=== PATIENT | male | born 1960 | race Caucasian/White ===

== ENCOUNTER 2019-02-19 14:51 | Emergency (ER) | payer MEDICAID ==
[~2019-02-19] VITALS: Ht 167.6 cm; Wt 68.0 kg
[2019-02-19] MEDS ORDERED: ONDANSETRON HCL 4MG/2ML INJ IV ONE (15:45)
[2019-02-19] MEDS ORDERED: FOLIC ACID 1 MG, THIAMINE HCL 100 MG, MVI, ADULT NO.1 10 ML in DEXTROSE 5% WATER 1,000 ML IV ONE ×4 (15:45)
[2019-02-19] MEDS ORDERED: LORAZEPAM 2MG/ML CPJ IV ONE (16:00)
[2019-02-19 16:17] LABS: BASOPHILS % 0.7 % (0.0-2.0); EOSINOPHILS % 0.3 % (0.0-5.0); HEMATOCRIT. 45.2 % (42.0-52.0); HEMOGLOBIN. 15.3 g/dL (14.0-18.0); LYMPHOCYTES % 11.8 % (20.0-50.0); MEAN CORPUSCULAR HEMOGLOBIN 31.7 pg (28.0-32.0); MEAN CORPUSCULAR VOLUME 93.7 fL (80.0-94.0); MEAN PLATELET VOLUME 7.5 fl (7.4-10.4); MONOCYTES % 9.5 % (2.0-8.0); NEUTROPHILS % 77.7 % (40.0-76.0); PLATELET 202 x1000/uL (130-400); RED BLOOD CELL COUNT 4.83 mill/uL (4.7-6.1); RED CELL DISTRIBUTION WIDTH 14.2 % (11.6-14.6)
[2019-02-19 16:23] LABS: CHLORIDE 103 mEq/L (98-107)
[2019-02-19 16:27] LABS: ETHANOL BLOOD < 10 mg/dL
[2019-02-19 16:56] LABS: CLARITY URINE CLEAR (CLEAR); COLOR URINE DARK YELLOW (YELLOW); KETONES URINE 2+ (NEGATIVE); LEUKOCYTE ESTERASE URINE TRACE (NEGATIVE); NITRITE URINE NEGATIVE (NEGATIVE); OCCULT BLOOD URINE TRACE (NEGATIVE); PH URINE 7.5 (4.5-8.0); PROTEIN URINE 1+ (NEGATIVE); SPECIFIC GRAVITY URINE 1.026 (1.005-1.030)
[2019-02-19 17:04] LABS: *AMPHETAMINES SCREEN URINE NEGATIVE (NEGATIVE); *BARBITURATES SCREEN URINE NEGATIVE (NEGATIVE); *BENZODIAZEPINES SCREEN URINE NEGATIVE (NEGATIVE); *COCAINE SCREEN URINE NEGATIVE (NEGATIVE); METHADONE URINE SCREEN NEGATIVE (NEGATIVE); OPIATES URINE SCREEN NEGATIVE (NEGATIVE)
[2019-02-19 17:05] LABS: CANNABINOID URINE SCREEN NEGATIVE (NEGATIVE); PHENCYCLIDINE URINE SCREEN NEGATIVE (NEGATIVE)
[2019-02-19] MEDS ORDERED: CHLORDIAZEPOXIDE 25MG CAPSULE PO ONE (17:30)
[2019-02-19 18:35] VITALS: BP 139/76
== END 2019-02-19 18:46 | disposition home or self-care (01) ==
LOC: ER 14:51
DX: F10.239 Alcohol dependence with withdrawal, unspecified (principal); Y90.0 Blood alcohol level of less than 20 mg/100 ml
CPT/HCPCS: 36415; 70450; 71045; 80053; 80305; 80307; 80320; 80329; 81003; 83735; 84484; 85025; 93005; 96365; 96375; 99284; J2060; J2405; J3411; J3490; J7070; G0480

== ENCOUNTER 2020-03-08 09:45 | Emergency (ER) | payer MEDICAID ==
[~2020-03-08] VITALS: Ht 160 cm; Wt 74.0 kg
[2020-03-08] MEDS ORDERED: SODIUM CHLORIDE 0.9% 1,000 ML IV ONE (11:22)
[2020-03-08] MEDS ORDERED: KETOROLAC 30MG/ML VIAL IV STA (11:22)
[2020-03-08 11:53] LABS: BASOPHILS % 1.1 % (0.0-2.0); EOSINOPHILS % 1.1 % (0.0-5.0); HEMATOCRIT. 40.1 % (42.0-52.0); HEMOGLOBIN. 13.8 g/dL (14.0-18.0); LYMPHOCYTES % 19.4 % (20.0-50.0); MEAN CORPUSCULAR HEMOGLOBIN 33.2 pg (28.0-32.0); MEAN CORPUSCULAR VOLUME 96.6 fL (80.0-94.0); MEAN PLATELET VOLUME 6.7 fl (7.4-10.4); MONOCYTES % 9.8 % (2.0-8.0); NEUTROPHILS % 68.6 % (40.0-76.0); PLATELET 131 x1000/uL (130-400); RED BLOOD CELL COUNT 4.15 mill/uL (4.7-6.1); RED CELL DISTRIBUTION WIDTH 13.6 % (11.6-14.6)
[2020-03-08 11:59] LABS: CHLORIDE 96 mEq/L (98-107)
[2020-03-08 12:03] LABS: ETHANOL BLOOD 179 mg/dL
[2020-03-08 12:31] LABS: CLARITY URINE CLEAR (CLEAR); COLOR URINE YELLOW (YELLOW); KETONES URINE NEGATIVE (NEGATIVE); LEUKOCYTE ESTERASE URINE NEGATIVE (NEGATIVE); NITRITE URINE NEGATIVE (NEGATIVE); OCCULT BLOOD URINE TRACE (NEGATIVE); PROTEIN URINE NEGATIVE (NEGATIVE)
[2020-03-08 12:46] VITALS: BP 137/86
[2020-03-08 12:48] LABS: *AMPHETAMINES SCREEN URINE NEGATIVE (NEGATIVE); *BARBITURATES SCREEN URINE NEGATIVE (NEGATIVE); *BENZODIAZEPINES SCREEN URINE NEGATIVE (NEGATIVE); *COCAINE SCREEN URINE NEGATIVE (NEGATIVE); METHADONE URINE SCREEN NEGATIVE (NEGATIVE); OPIATES URINE SCREEN NEGATIVE (NEGATIVE)
[2020-03-08 12:49] LABS: CANNABINOID URINE SCREEN NEGATIVE (NEGATIVE); PHENCYCLIDINE URINE SCREEN NEGATIVE (NEGATIVE)
== END 2020-03-08 14:11 | disposition home or self-care (01) ==
LOC: ER 09:45
DX: R10.13 Epigastric pain (principal); F10.129 Alcohol abuse with intoxication, unspecified; Y90.6 Blood alcohol level of 120-199 mg/100 ml; R20.0 Anesthesia of skin; D64.9 Anemia, unspecified; D72.819 Decreased white blood cell count, unspecified; Z87.891 Personal history of nicotine dependence
CPT/HCPCS: 36415; 71045; 74176; 80053; 80305; 80320; 81003; 83690; 85025; 93005; 96361; 96374; 99285; J1885; J7030; G0480

== ENCOUNTER 2020-06-10 00:20 | Inpatient (IN) | payer MEDICAID ==
[~2020-06-10] VITALS: Ht 167.6 cm; Wt 55.3 kg
[2020-06-10 01:01] LABS: HEMATOCRIT. 37.6 % (42.0-52.0); HEMOGLOBIN. 13.1 g/dL (14.0-18.0); MEAN CORPUSCULAR HEMOGLOBIN 32.5 pg (28.0-32.0); MEAN CORPUSCULAR VOLUME 93.4 fL (80.0-94.0); MEAN PLATELET VOLUME 7.4 fl (7.4-10.4); PLATELET 142 x1000/uL (130-400); RED BLOOD CELL COUNT 4.02 mill/uL (4.7-6.1); RED CELL DISTRIBUTION WIDTH 12.5 % (11.6-14.6)
[2020-06-10 01:07] LABS: PLATELET ESTIMATE NORMAL
[2020-06-10 01:09] LABS: CHLORIDE 85 mEq/L (98-107)
[2020-06-10 01:13] LABS: ETHANOL BLOOD < 10 mg/dL
[2020-06-10] MEDS ORDERED: SODIUM CHLORIDE 0.9% 1,000 ML IV ONE (01:30)
[2020-06-10] MEDS ORDERED: KCL 20MEQ/100ML PREMIX 100 ML IV ONE (02:30)
[2020-06-10] MEDS ORDERED: MAGNESIUM/ALUMINUM HYDROXIDE/SIMETHICONE 30ML UDC PO PRN (07:00)
[2020-06-10] MEDS ORDERED: NITROGLYCERIN 0.4MG TABLET SL SL PRN (07:00)
[2020-06-10] MEDS ORDERED: DOCUSATE SODIUM 100MG CAPSULE PO PRN (07:00)
[2020-06-10] MEDS ORDERED: KETOROLAC 15MG/ML VIAL IV PRN (07:00)
[2020-06-10] MEDS ORDERED: ACETAMINOPHEN 325MG TABLET PO PRN ×2 (07:00)
[2020-06-10] MEDS ORDERED: ONDANSETRON HCL 4MG/2ML INJ IV PRN (07:00)
[2020-06-10] MEDS ORDERED: CLONIDINE 0.1MG TABLET PO PRN (07:00)
[2020-06-10] MEDS ORDERED: POTASSIUM CHLORIDE 20MEQ TABLET SR PO SCH (08:00)
[2020-06-10] MEDS ORDERED: KCL 20MEQ/100ML PREMIX 100 ML IV SCH (08:00)
[2020-06-10] MEDS ORDERED: MVI, ADULT NO.1 10 ML, FOLIC ACID 1 MG, THIAMINE HCL 100 MG in SODIUM CHLORIDE 0.9% 1,0... IV SCH ×4 (08:00)
[2020-06-10 08:12] LABS: FOLIC ACID (FOLATE) SERUM 12.8 ng/mL (>5.38)
[2020-06-10 12:02] LABS: *AMPHETAMINES SCREEN URINE NEGATIVE (NEGATIVE); *BARBITURATES SCREEN URINE NEGATIVE (NEGATIVE); *BENZODIAZEPINES SCREEN URINE NEGATIVE (NEGATIVE); *COCAINE SCREEN URINE NEGATIVE (NEGATIVE); METHADONE URINE SCREEN NEGATIVE (NEGATIVE); OPIATES URINE SCREEN NEGATIVE (NEGATIVE); PHENCYCLIDINE URINE SCREEN NEGATIVE (NEGATIVE)
[2020-06-10 12:03] LABS: CANNABINOID URINE SCREEN NEGATIVE (NEGATIVE)
[2020-06-10] MEDS: ENOXAPARIN 40MG/0.4ML SYR SUBCUT SCH (12:33)
[2020-06-10] MEDS: FAMOTIDINE 20MG TABLET PO SCH ×2 (12:33→22:39)
[2020-06-10] MEDS ORDERED: ZOLPIDEM TARTRATE 5MG TABLET PO PRN (18:00)
[2020-06-10 20:00] VITALS: BP 99/56
[2020-06-10] MEDS: SODIUM CHLORIDE 0.9% 1,000 ML IV SCH ×2 (20:04→23:19)
[2020-06-10 21:25] VITALS: BP 128/75
[2020-06-11] VITALS: BP 130/79
[2020-06-11 04:00] VITALS: BP 131/84
[2020-06-11 06:37] LABS: CHLORIDE 102 mEq/L (98-107)
[2020-06-11 06:42] LABS: AMYLASE 113 IU/L (25-115)
[2020-06-11 07:06] LABS: PHOSPHORUS 0.8 mg/dL (2.5-4.9)
[2020-06-11 07:38] LABS: BASOPHILS % 0.5 % (0.0-2.0); EOSINOPHILS % 1.1 % (0.0-5.0); HEMATOCRIT. 33.4 % (42.0-52.0); HEMOGLOBIN. 11.4 g/dL (14.0-18.0); LYMPHOCYTES % 13.4 % (20.0-50.0); MEAN CORPUSCULAR HEMOGLOBIN 32.5 pg (28.0-32.0); MEAN CORPUSCULAR VOLUME 95.2 fL (80.0-94.0); MEAN PLATELET VOLUME 7.4 fl (7.4-10.4); MONOCYTES % 13.7 % (2.0-8.0); NEUTROPHILS % 71.3 % (40.0-76.0); PLATELET 134 x1000/uL (130-400); RED BLOOD CELL COUNT 3.51 mill/uL (4.7-6.1); RED CELL DISTRIBUTION WIDTH 12.3 % (11.6-14.6)
[2020-06-11 08:00] VITALS: BP 140/88
[2020-06-11] MEDS: ENOXAPARIN 40MG/0.4ML SYR SUBCUT SCH (08:44)
[2020-06-11] MEDS: FAMOTIDINE 20MG TABLET PO SCH ×2 (08:44→21:45)
[2020-06-11] MEDS ORDERED: POTASSIUM CHLORIDE 20MEQ/PACKET PO NR (09:00)
[2020-06-11] MEDS ORDERED: POTASSIUM PHOS,M-BASIC-D-BASIC 30 MMOL in DEXT 5% WATER 500 ML IV NR (10:30)
[2020-06-11 12:00] VITALS: BP 146/92
[2020-06-11] MEDS: CHLORDIAZEPOXIDE 25MG CAPSULE PO SCH ×2 (15:01→21:45)
[2020-06-11 16:00] VITALS: BP 123/83
[2020-06-11 20:00] VITALS: BP 120/83
[2020-06-11] MEDS: SODIUM CHLORIDE 0.9% 1,000 ML IV SCH (23:07)
[2020-06-12] VITALS: BP 108/71
[2020-06-12 04:00] VITALS: BP 120/70
[2020-06-12] MEDS: CHLORDIAZEPOXIDE 25MG CAPSULE PO SCH (05:54)
[2020-06-12 08:00] VITALS: BP 108/72
[2020-06-12 08:29] LABS: CHLORIDE 100 mEq/L (98-107)
[2020-06-12 08:34] LABS: PHOSPHORUS 3.1 mg/dL (2.5-4.9)
[2020-06-12 08:35] LABS: AMYLASE 115 IU/L (25-115)
[2020-06-12] MEDS: FAMOTIDINE 20MG TABLET PO SCH ×2 (08:58→21:37)
[2020-06-12] MEDS: ENOXAPARIN 40MG/0.4ML SYR SUBCUT SCH (08:58)
[2020-06-12] MEDS: SODIUM CHLORIDE 0.9% 1,000 ML IV SCH ×2 (08:58→15:55)
[2020-06-12] MEDS ORDERED: POTASSIUM CHLORIDE INJ 40 MEQ in DEXT 5% WATER 500 ML IV NR (11:00)
[2020-06-12] MEDS ORDERED: POTASSIUM CHLORIDE 20MEQ/PACKET PO NR (11:00)
[2020-06-12 12:00] VITALS: BP 106/70
[2020-06-12 12:59] LABS: MEAN CORPUSCULAR HEMOGLOBIN 32.5 pg (28.0-32.0); PLATELET 208 x1000/uL (130-400); RED BLOOD CELL COUNT 3.68 mill/uL (4.7-6.1); RED CELL DISTRIBUTION WIDTH 12.7 % (11.6-14.6)
[2020-06-12] MEDS: CHLORDIAZEPOXIDE 10MG CAPSULE PO SCH ×2 (14:01→21:37)
[2020-06-12 16:00] VITALS: BP 111/51
[2020-06-12 17:11] LABS: PLATELET ESTIMATE NORMAL
[2020-06-12 20:00] VITALS: BP 100/60
[2020-06-13] VITALS: BP 102/69
[2020-06-13] MEDS: SODIUM CHLORIDE 0.9% 1,000 ML IV SCH ×2 (00:31→08:58)
[2020-06-13 04:00] VITALS: BP 100/68
[2020-06-13] MEDS: CHLORDIAZEPOXIDE 10MG CAPSULE PO SCH (06:02)
[2020-06-13 07:52] LABS: HEMATOCRIT. 34.3 % (42.0-52.0); HEMOGLOBIN. 11.7 g/dL (14.0-18.0); MEAN CORPUSCULAR HEMOGLOBIN 32.5 pg (28.0-32.0); MEAN PLATELET VOLUME 6.6 fl (7.4-10.4); PLATELET 234 x1000/uL (130-400); RED BLOOD CELL COUNT 3.61 mill/uL (4.7-6.1); RED CELL DISTRIBUTION WIDTH 12.6 % (11.6-14.6)
[2020-06-13 08:00] VITALS: BP 110/69
[2020-06-13 08:19] LABS: CHLORIDE 106 mEq/L (98-107)
[2020-06-13 08:29] LABS: PHOSPHORUS 2.7 mg/dL (2.5-4.9)
[2020-06-13] MEDS: FAMOTIDINE 20MG TABLET PO SCH ×2 (08:56→22:43)
[2020-06-13] MEDS: ENOXAPARIN 40MG/0.4ML SYR SUBCUT SCH (08:57)
[2020-06-13] MEDS ORDERED: POTASSIUM CHLORIDE 20MEQ/PACKET PO NR (09:45)
[2020-06-13] MEDS ORDERED: POTASSIUM CHLORIDE INJ 40 MEQ in DEXT 5% WATER 500 ML IV NR (11:00)
[2020-06-13 12:00] VITALS: BP 101/70
[2020-06-13 15:01] LABS: PLATELET ESTIMATE NORMAL
[2020-06-13 16:00] VITALS: BP 94/63
[2020-06-13 20:00] VITALS: BP 94/63
[2020-06-14] VITALS: BP 110/72
[2020-06-14 04:00] VITALS: BP 96/59
[2020-06-14 07:32] LABS: CHLORIDE 107 mEq/L (98-107)
[2020-06-14 07:50] LABS: PHOSPHORUS 1.6 mg/dL (2.5-4.9)
[2020-06-14 08:00] VITALS: BP 106/65
[2020-06-14] MEDS: SODIUM CHLORIDE 0.9% 1,000 ML IV SCH ×3 (08:00→16:00)
[2020-06-14 09:07] LABS: HEMATOCRIT. 34.5 % (42.0-52.0); HEMOGLOBIN. 11.7 g/dL (14.0-18.0); MEAN CORPUSCULAR HEMOGLOBIN 32.5 pg (28.0-32.0); MEAN CORPUSCULAR VOLUME 95.7 fL (80.0-94.0); MEAN PLATELET VOLUME 6.6 fl (7.4-10.4); PLATELET 254 x1000/uL (130-400); RED CELL DISTRIBUTION WIDTH 12.9 % (11.6-14.6)
[2020-06-14] MEDS: FAMOTIDINE 20MG TABLET PO SCH ×2 (09:53→21:31)
[2020-06-14] MEDS: ENOXAPARIN 40MG/0.4ML SYR SUBCUT SCH (09:54)
[2020-06-14] MEDS ORDERED: POTASSIUM CHLORIDE 20MEQ/PACKET PO SCH (10:00)
[2020-06-14] MEDS ORDERED: SODIUM CHLORIDE 0.9% IV SCH (11:00)
[2020-06-14] MEDS ORDERED: POTASSIUM PHOS M BASIC D BASIC IV SCH (11:00)
[2020-06-14] MEDS ORDERED: POTASSIUM PHOS,M-BASIC-D-BASIC 20 MMOL in DEXT 5% WATER 243.3333 ML IV SCH (11:00)
[2020-06-14 12:00] VITALS: BP 100/59
[2020-06-14 16:00] VITALS: BP 99/73
[2020-06-14 18:25] LABS: PLATELET ESTIMATE NORMAL
[2020-06-14 20:00] VITALS: BP 99/64
[2020-06-15] VITALS: BP 101/67
[2020-06-15] MEDS: SODIUM CHLORIDE 0.9% 1,000 ML IV SCH (00:45)
[2020-06-15 04:00] VITALS: BP 100/65
[2020-06-15] MEDS: FAMOTIDINE 20MG TABLET PO SCH (09:00)
[2020-06-15] MEDS: ENOXAPARIN 40MG/0.4ML SYR SUBCUT SCH (10:14)
== END 2020-06-15 11:45 | disposition home or self-care (01) | DRG 282 ==
LOC: ER 00:20 → 6EST 05:08 → ENRESERV 19:43 → CANRESERV 19:43 → EDBEDREQSVC 20:21 → ENRESERV 20:39
PROVIDERS: ADMIT Internal Medicine; ATTEND Internal Medicine
DX: K85.20 Alcohol induced acute pancreatitis without necrosis or infection (principal); D63.8 Anemia in other chronic diseases classified elsewhere; E87.1 Hypo-osmolality and hyponatremia; E87.6 Hypokalemia; K74.60 Unspecified cirrhosis of liver; R74.01 Elevation of levels of liver transaminase levels; F10.239 Alcohol dependence with withdrawal, unspecified; Z71.41 Alcohol abuse counseling and surveillance of alcoholic; Z20.822 Contact with and (suspected) exposure to COVID-19; E43 Unspecified severe protein-calorie malnutrition; Z68.1 Body mass index [BMI] 19.9 or less, adult
CPT/HCPCS: 36415; 71045; 74176; 80048; 80053; 80076; 80305; 80320; 82140; 82150; 82607; 82728; 82746; 83540; 83550; 83615; 83735; 84100; 84145; 84484; 85025; 85379; 87635; 93005; 93970; 99285; J1650; J1885; J3411; J3480; J3490; J7030; J7050; J7060; G0480

== ENCOUNTER 2021-08-27 11:32 | Emergency (ER) | payer MEDICAID ==
[~2021-08-27] VITALS: Ht 165.1 cm; Wt 66.0 kg
[2021-08-27 11:36] VITALS: BP 134/83
== END 2021-08-27 11:45 | disposition left against medical advice (07) ==
LOC: ER 11:32
DX: Z53.21 Procedure and treatment not carried out due to patient leaving prior to being seen by health care provider (principal)
CPT/HCPCS: 93005

== ENCOUNTER 2021-09-07 04:42 | Emergency (ER) | payer MEDICAID ==
[~2021-09-07] VITALS: Ht 162.6 cm; Wt 64.0 kg
[2021-09-07 05:45] LABS: CHLORIDE 103 mEq/L (98-107)
[2021-09-07 05:49] LABS: ETHANOL BLOOD < 10 mg/dL
[2021-09-07 05:51] LABS: BASOPHILS % 0.7 % (0.0-2.0); EOSINOPHILS % 1.7 % (0.0-5.0); HEMOGLOBIN. 11.9 g/dL (14.0-18.0); LYMPHOCYTES % 18.3 % (20.0-50.0); MEAN CORPUSCULAR HEMOGLOBIN 33.9 pg (28.0-32.0); MEAN CORPUSCULAR VOLUME 100.2 fL (80.0-94.0); MEAN PLATELET VOLUME 7.1 fl (7.4-10.4); MONOCYTES % 6.2 % (2.0-8.0); NEUTROPHILS % 73.1 % (40.0-76.0); PLATELET 187 x1000/uL (130-400); RED CELL DISTRIBUTION WIDTH 14.7 % (11.6-14.6)
[2021-09-07 07:42] VITALS: BP 106/67
== END 2021-09-07 08:35 | disposition home or self-care (01) ==
LOC: ER 04:42
DX: S00.03XA Contusion of scalp, initial encounter (principal); E11.9 Type 2 diabetes mellitus without complications; I10 Essential (primary) hypertension; Z59.00 Homelessness unspecified; W19.XXXA Unspecified fall, initial encounter; Y93.89 Activity, other specified; Y92.89 Other specified places as the place of occurrence of the external cause
CPT/HCPCS: 36415; 71045; 80053; 80320; 83880; 84484; 85025; 93005; 99285; G0480

== ENCOUNTER 2022-02-01 15:10 | Emergency (ER) | payer MEDICAID ==
[~2022-02-01] VITALS: Ht 162.6 cm; Wt 77.0 kg
[2022-02-01 15:14] VITALS: BP 128/71
[2022-02-01] MEDS ORDERED: MAGNESIUM/ALUMINUM HYDROXIDE/SIMETHICONE 30ML UDC PO STA (18:20)
== END 2022-02-01 18:58 | disposition left against medical advice (07) ==
LOC: ER 15:10
DX: R60.1 Generalized edema (principal); E11.9 Type 2 diabetes mellitus without complications; I10 Essential (primary) hypertension; E78.00 Pure hypercholesterolemia, unspecified; F10.21 Alcohol dependence, in remission
CPT/HCPCS: 99281

== ENCOUNTER 2022-03-16 03:32 | Inpatient (IN) | payer MEDICAID ==
[~2022-03-16] VITALS: Ht 162.6 cm; Wt 86.2 kg
[2022-03-16] VITALS (8 sets, daily range): BP systolic 88–133; BP diastolic 46–74
[2022-03-16 04:12] LABS: BASOPHILS % 1.1 % (0.0-2.0); EOSINOPHILS % 1.3 % (0.0-5.0); HEMATOCRIT. 25.9 % (42.0-52.0); HEMOGLOBIN. 8.7 g/dL (14.0-18.0); LYMPHOCYTES % 16.2 % (20.0-50.0); MEAN CORPUSCULAR HEMOGLOBIN 34.7 pg (28.0-32.0); MEAN CORPUSCULAR VOLUME 103.7 fL (80.0-94.0); MONOCYTES % 6.7 % (2.0-8.0); NEUTROPHILS % 74.7 % (40.0-76.0)
[2022-03-16 04:23] LABS: INR 1.8
[2022-03-16 04:40] LABS: CHLORIDE 107 mEq/L (98-107); ETHANOL BLOOD < 10 mg/dL
[2022-03-16 04:49] LABS: MEAN PLATELET VOLUME 6.4 fl (7.4-10.4); PLATELET 226 x1000/uL (130-400)
[2022-03-16 04:50] LABS: PLATELET ESTIMATE NORMAL
[2022-03-16] MEDS ORDERED: PIPERACILLIN/TAZ 3.375G PREMIX 50 ML IV ONE (05:00)
[2022-03-16] MEDS ORDERED: VANCOMYCIN 1G PREMIX 200 ML IV SCH (05:00)
[2022-03-16] MEDS ORDERED: PIPERACILLIN/TAZ 3.375G PREMIX 50 ML IV NR (05:30)
[2022-03-16] MEDS ORDERED: TAMSULOSIN HCL 0.4MG SR CAPSULE PO NR (05:30)
[2022-03-16] MEDS ORDERED: MORPHINE SULFATE 4 MG/ML CPJ (NOT FOR IM USE) IV NR (06:15)
[2022-03-16 06:46] LABS: INR 1.8; PROTHROMBIN TIME 18.9 sec (9.6-11.0)
[2022-03-16] MEDS ORDERED: GUAIFENESIN 200MG/10ML SUGAR FREE UDC PO PRN (09:00)
[2022-03-16] MEDS ORDERED: POTASSIUM CHLORIDE 20MEQ TABLET SR PO NR (09:00)
[2022-03-16 09:04] LABS: BG BASE EXCESS -3.8 mmol/L (-2.0-2.0); BG CARBOXYHEMOGLOBIN 0.6 % (0.5-1.5); BG DEOXYHEMOGLOBIN 1.9 % (0.0-5.0); BG FRACTION INSPIRED OXYGEN 100; BG HCO3 ACT 21.3 mmol/L (22.0-26.0); BG METHEMOGLOBIN 0.4 % (0.0-1.5); BG OXYGEN SATURATION 98.1 % (92.0-98.5); BG OXYHEMOGLOBIN 97.1 % (94.0-97.0); BG PCO2 38.7 mmHg (35.0-45.0); BG PH 7.358 (7.350-7.450); BG PO2 109.2 mmHg (75.0-100.0); BG SAMPLE SITE RIGHT RADIAL; BG TOTAL HEMOGLOBIN 8.5 g/dL (12.0-18.0); BG VENT MODE MASK - BIPAP
[2022-03-16] MEDS: DOCUSATE SODIUM 100MG CAPSULE PO SCH (09:37)
[2022-03-16] MEDS: SPIRONOLACTONE 25MG TABLET PO SCH (09:37)
[2022-03-16] MEDS: FUROSEMIDE 40MG/4ML VIAL IVP SCH (09:37)
[2022-03-16] MEDS ORDERED: MAGNESIUM/ALUMINUM HYDROXIDE/SIMETHICONE 30ML UDC PO PRN (09:45)
[2022-03-16] MEDS ORDERED: DOCUSATE SODIUM 100MG CAPSULE PO PRN (09:45)
[2022-03-16] MEDS ORDERED: NITROGLYCERIN 0.4MG TABLET SL SL PRN (09:45)
[2022-03-16] MEDS ORDERED: CEFTRIAXONE 1 G PREMIX 50 ML IV SCH ×2 (09:45→12:30)
[2022-03-16] MEDS ORDERED: ZOLPIDEM TARTRATE 5MG TABLET PO PRN (09:45)
[2022-03-16] MEDS ORDERED: KETOROLAC 15MG/ML VIAL IV PRN (09:45)
[2022-03-16] MEDS ORDERED: ACETAMINOPHEN 325MG TABLET PO PRN ×2 (09:45)
[2022-03-16] MEDS ORDERED: CLONIDINE 0.1MG TABLET PO PRN (09:45)
[2022-03-16] MEDS ORDERED: LIDOCAINE HCL 1% 30ML VIAL (10MG/ML) ONE (10:32)
[2022-03-16] MEDS ORDERED: SODIUM BICARBONATE 4% (2.4MEQ) 5ML VIAL IV ONE (10:32)
[2022-03-16] MEDS ORDERED: PHYTONADIONE 10 MG in DEXTROSE 5% WATER 50 ML IV NR (11:30)
[2022-03-16] MEDS: CEFTRIAXONE 1,000 MG in DEXTROSE 5% WATER 50 ML IV SCH (12:59)
[2022-03-16 13:28] LABS: PHOSPHORUS 3.5 mg/dL (2.5-4.9)
[2022-03-16 13:41] LABS: T4 FREE 1.16 ng/dL (0.76-1.46)
[2022-03-16 17:24] LABS: CLARITY URINE CLEAR (CLEAR); COLOR URINE YELLOW (YELLOW); KETONES URINE NEGATIVE (NEGATIVE); LEUKOCYTE ESTERASE URINE NEGATIVE (NEGATIVE); NITRITE URINE NEGATIVE (NEGATIVE); OCCULT BLOOD URINE NEGATIVE (NEGATIVE); PROTEIN URINE NEGATIVE (NEGATIVE); SPECIFIC GRAVITY URINE 1.013 (1.005-1.030)
[2022-03-16 17:35] LABS: *AMPHETAMINES SCREEN URINE NEGATIVE (NEGATIVE); *BARBITURATES SCREEN URINE NEGATIVE (NEGATIVE); *BENZODIAZEPINES SCREEN URINE NEGATIVE (NEGATIVE); *COCAINE SCREEN URINE NEGATIVE (NEGATIVE); CANNABINOID URINE SCREEN NEGATIVE (NEGATIVE); METHADONE URINE SCREEN NEGATIVE (NEGATIVE); OPIATES URINE SCREEN PRESUMTIVE POSITIVE (NEGATIVE); PHENCYCLIDINE URINE SCREEN NEGATIVE (NEGATIVE)
[2022-03-16] MEDS ORDERED: MAGNESIUM 1 G PREMIX 100 ML IV NR (18:00)
[2022-03-16] MEDS: GUAIFENESIN 200MG/10ML SUGAR FREE UDC PO PRN (18:49)
[2022-03-16 23:00] LABS: HEPATITIS B SURFACE ANTIGEN NEGATIVE
[2022-03-17] VITALS (16 sets, daily range): BP systolic 97–135; BP diastolic 47–73
[2022-03-17 06:44] LABS: BASOPHILS % 0.2 % (0.0-2.0); LYMPHOCYTES % 8.9 % (20.0-50.0); MEAN CORPUSCULAR HEMOGLOBIN 35.1 pg (28.0-32.0); MEAN CORPUSCULAR VOLUME 103.9 fL (80.0-94.0); MONOCYTES % 5.2 % (2.0-8.0); NEUTROPHILS % 85.7 % (40.0-76.0); RED BLOOD CELL COUNT 1.98 mill/uL (4.7-6.1); RED CELL DISTRIBUTION WIDTH 15.5 % (11.6-14.6)
[2022-03-17 07:57] LABS: BG BASE EXCESS 2.5 mmol/L (-2.0-2.0); BG CARBOXYHEMOGLOBIN 0.1 % (0.5-1.5); BG DEOXYHEMOGLOBIN 8.1 % (0.0-5.0); BG FRACTION INSPIRED OXYGEN 60; BG HCO3 ACT 26.3 mmol/L (22.0-26.0); BG METHEMOGLOBIN 0.4 % (0.0-1.5); BG OXYGEN SATURATION 91.9 % (92.0-98.5); BG OXYHEMOGLOBIN 91.4 % (94.0-97.0); BG PCO2 36.9 mmHg (35.0-45.0); BG PO2 61.2 mmHg (75.0-100.0); BG SAMPLE SITE RIGHT RADIAL; BG TOTAL HEMOGLOBIN 7.8 g/dL (12.0-18.0); BG TOTAL RESPIRATORY RATE 31 b/min; BG VENT MODE MASK - BIPAP
[2022-03-17 08:04] LABS: HEMATOCRIT. 20.6 % (42.0-52.0)
[2022-03-17 08:30] LABS: CHLORIDE 107 mEq/L (98-107)
[2022-03-17] MEDS: PANTOPRAZOLE SODIUM 40 MG/VIAL IV SCH (08:43)
[2022-03-17] MEDS: FUROSEMIDE 40MG/4ML VIAL IVP SCH (08:43)
[2022-03-17] MEDS: DOCUSATE SODIUM 100MG CAPSULE PO SCH (08:43)
[2022-03-17] MEDS: SPIRONOLACTONE 25MG TABLET PO SCH (08:43)
[2022-03-17 08:51] LABS: PHOSPHORUS 3.2 mg/dL (2.5-4.9)
[2022-03-17] MEDS ORDERED: METOLAZONE 10MG TABLET PO NR (12:00)
[2022-03-17] MEDS: CEFTRIAXONE 1,000 MG in DEXTROSE 5% WATER 50 ML IV SCH (12:04)
[2022-03-17 14:00] LABS: MEAN PLATELET VOLUME 6.9 fl (7.4-10.4); PLATELET 111 x1000/uL (130-400)
[2022-03-17] MEDS ORDERED: ALBUMIN HUMAN 12.5GM/50ML (25%) IV NR (15:00)
[2022-03-17] MEDS: GUAIFENESIN 200MG/10ML SUGAR FREE UDC PO PRN (16:17)
[2022-03-17 17:05] LABS: HEMATOCRIT 22.1 % (42.0-52.0); HEMOGLOBIN 7.5 g/dL (14.0-18.0); MEAN CORPUSCULAR HEMOGLOBIN 34.8 pg (28.0-32.0); MEAN CORPUSCULAR VOLUME 102.4 fL (80.0-94.0); PLATELET 115 x1000/uL (130-400); RED BLOOD CELL COUNT 2.16 mill/uL (4.7-6.1); RED CELL DISTRIBUTION WIDTH 15.6 % (11.6-14.6)
[2022-03-17] MEDS: ONDANSETRON HCL 4MG/2ML INJ IV PRN (21:05)
[2022-03-18] VITALS (74 sets, daily range): BP systolic 55–139; BP diastolic 31–72
[2022-03-18] MEDS: ONDANSETRON HCL 4MG/2ML INJ IV PRN (04:52)
[2022-03-18] MEDS: FUROSEMIDE 40MG/4ML VIAL IVP SCH ×2 (08:27→16:26)
[2022-03-18] MEDS: PANTOPRAZOLE SODIUM 40 MG/VIAL IV SCH (08:27)
[2022-03-18] MEDS: DOCUSATE SODIUM 100MG CAPSULE PO SCH (08:27)
[2022-03-18] MEDS: SPIRONOLACTONE 25MG TABLET PO SCH (08:28)
[2022-03-18] MEDS ORDERED: ALBUMIN HUMAN 12.5GM/50ML (25%) IV NR ×2 (08:55→16:00)
[2022-03-18] MEDS ORDERED: METOLAZONE 10MG TABLET PO NR (08:55)
[2022-03-18 09:13] LABS: HEMATOCRIT 25.9 % (42.0-52.0); HEMOGLOBIN 8.7 g/dL (14.0-18.0); MEAN CORPUSCULAR HEMOGLOBIN 33.7 pg (28.0-32.0); MEAN CORPUSCULAR VOLUME 100.7 fL (80.0-94.0); PLATELET 128 x1000/uL (130-400); RED BLOOD CELL COUNT 2.57 mill/uL (4.7-6.1); RED CELL DISTRIBUTION WIDTH 16.5 % (11.6-14.6)
[2022-03-18 09:37] LABS: CHLORIDE 105 mEq/L (98-107)
[2022-03-18 09:40] LABS: BG BASE EXCESS -1.3 mmol/L (-2.0-2.0); BG CARBOXYHEMOGLOBIN 0.3 % (0.5-1.5); BG DEOXYHEMOGLOBIN 12.2 % (0.0-5.0); BG FRACTION INSPIRED OXYGEN 100; BG HCO3 ACT 22.5 mmol/L (22.0-26.0); BG METHEMOGLOBIN 0.5 % (0.0-1.5); BG OXYGEN SATURATION 87.7 % (92.0-98.5); BG PCO2 34.3 mmHg (35.0-45.0); BG PH 7.435 (7.350-7.450); BG PO2 56.2 mmHg (75.0-100.0); BG SAMPLE SITE RIGHT RADIAL; BG TOTAL HEMOGLOBIN 9.6 g/dL (12.0-18.0); BG TOTAL RESPIRATORY RATE 40 b/min; BG VENT MODE MASK - BIPAP
[2022-03-18] MEDS ORDERED: MIDAZOLAM HCL 100 MG in SODIUM CHLORIDE 0.9% 80 ML IV PRN (10:15)
[2022-03-18] MEDS ORDERED: PHENYLEPHRINE 100 MG in DEXT 5% WATER 240 ML IV PRN (10:15)
[2022-03-18] MEDS ORDERED: NOREPINEPHRINE 32 MG in DEXT 5% WATER 218 ML IV PRN (10:15)
[2022-03-18] MEDS ORDERED: FENTANYL 2500MCG/250ML PMX 250 ML IV PRN ×2 (10:15→19:00)
[2022-03-18] MEDS ORDERED: LIDOCAINE HCL 1% 30ML VIAL (10MG/ML) ONE (10:51)
[2022-03-18] MEDS: CEFTRIAXONE 1,000 MG in DEXTROSE 5% WATER 50 ML IV SCH (12:44)
[2022-03-18 12:59] LABS: BG BASE EXCESS -6.2 mmol/L (-2.0-2.0); BG CARBOXYHEMOGLOBIN 0.6 % (0.5-1.5); BG DEOXYHEMOGLOBIN 23.7 % (0.0-5.0); BG FRACTION INSPIRED OXYGEN 100; BG HCO3 ACT 20.3 mmol/L (22.0-26.0); BG METHEMOGLOBIN 0.3 % (0.0-1.5); BG OXYGEN SATURATION 76.1 % (92.0-98.5); BG OXYHEMOGLOBIN 75.4 % (94.0-97.0); BG PCO2 43.8 mmHg (35.0-45.0); BG PH 7.284 (7.350-7.450); BG PO2 45.8 mmHg (75.0-100.0); BG SAMPLE SITE RIGHT RADIAL; BG TOTAL HEMOGLOBIN 12.8 g/dL (12.0-18.0); BG VENT MODE VENT - AC
[2022-03-18] MEDS: METRONIDAZOLE 500 MG PREMIX 100 ML IV SCH ×2 (13:58→21:07)
[2022-03-18 14:23] LABS: BG BASE EXCESS -7.1 mmol/L (-2.0-2.0); BG CARBOXYHEMOGLOBIN 0.7 % (0.5-1.5); BG DEOXYHEMOGLOBIN 35.9 % (0.0-5.0); BG FRACTION INSPIRED OXYGEN 100; BG HCO3 ACT 21.2 mmol/L (22.0-26.0); BG METHEMOGLOBIN 0.3 % (0.0-1.5); BG OXYGEN SATURATION 63.7 % (92.0-98.5); BG OXYHEMOGLOBIN 63.1 % (94.0-97.0); BG PCO2 55.8 mmHg (35.0-45.0); BG PH 7.197 (7.350-7.450); BG PO2 40.4 mmHg (75.0-100.0); BG SAMPLE SITE RIGHT BRACHIAL; BG TOTAL HEMOGLOBIN 10.8 g/dL (12.0-18.0); BG VENT MODE VENT - AC
[2022-03-18] MEDS ORDERED: VASOPRESSIN 20 UNIT in SODIUM CHLORIDE 0.9% 99 ML IV PRN ×2 (15:15→15:30)
[2022-03-18 15:52] LABS: INR 2.3; PROTHROMBIN TIME 23.3 sec (9.6-11.0)
[2022-03-18] MEDS: METHYLPREDNISOLONE SOD SUCC 125 MG/2 ML VIAL IV SCH ×2 (16:25→22:51)
[2022-03-18] MEDS: IPRATROPIUM/ALBUTEROL 0.5-3(2.5)MG/3ML NEB NEB PRN (20:02)
[2022-03-18] MEDS: PHENYLEPHRINE 100 MG in DEXT 5% WATER 240 ML IV PRN (21:07)
[2022-03-18] MEDS: VASOPRESSIN 20 UNIT in SODIUM CHLORIDE 0.9% 99 ML IV PRN (22:50)
[2022-03-19] VITALS (94 sets, daily range): BP systolic 68–147; BP diastolic 19–58
[2022-03-19] MEDS: NOREPINEPHRINE 32 MG in DEXT 5% WATER 218 ML IV PRN ×4 (00:21→20:32)
[2022-03-19] MEDS: PHENYLEPHRINE 100 MG in DEXT 5% WATER 240 ML IV PRN ×3 (04:07→18:01)
[2022-03-19 05:30] LABS: HEMATOCRIT. 27.3 % (42.0-52.0); HEMOGLOBIN. 8.5 g/dL (14.0-18.0); MEAN CORPUSCULAR HEMOGLOBIN 34.3 pg (28.0-32.0); MEAN CORPUSCULAR VOLUME 110.3 fL (80.0-94.0); MEAN PLATELET VOLUME 7.9 fl (7.4-10.4); PLATELET 141 x1000/uL (130-400); RED BLOOD CELL COUNT 2.48 mill/uL (4.7-6.1)
[2022-03-19] MEDS: METHYLPREDNISOLONE SOD SUCC 125 MG/2 ML VIAL IV SCH ×3 (05:39→20:31)
[2022-03-19] MEDS: METRONIDAZOLE 500 MG PREMIX 100 ML IV SCH ×3 (05:40→20:31)
[2022-03-19 05:41] LABS: CHLORIDE 106 mEq/L (98-107)
[2022-03-19] MEDS ORDERED: SODIUM BICARBONATE 150 MEQ in DEXTROSE 5% WATER 1,000 ML IV SCH ×2 (05:45→06:45)
[2022-03-19] MEDS: DEXTROSE 50% WATER 50ML SYRINGE IV PRN ×2 (05:48→17:57)
[2022-03-19] MEDS: SODIUM BICARBONATE 150 MEQ in DEXTROSE 5% WATER 1,000 ML IV SCH (07:37)
[2022-03-19] MEDS: DOCUSATE SODIUM 100MG CAPSULE PO SCH (07:37)
[2022-03-19] MEDS: SPIRONOLACTONE 50MG TABLET PO SCH (07:37)
[2022-03-19] MEDS: IPRATROPIUM/ALBUTEROL 0.5-3(2.5)MG/3ML NEB NEB PRN ×4 (08:22→20:07)
[2022-03-19] MEDS: VASOPRESSIN 20 UNIT in SODIUM CHLORIDE 0.9% 99 ML IV PRN ×2 (08:47→20:32)
[2022-03-19] MEDS: PANTOPRAZOLE SODIUM 40 MG/VIAL IV SCH (09:01)
[2022-03-19] MEDS: DOPAMINE 800MG PREMIX (DOUBLE) 250 ML IV PRN ×2 (09:01→16:35)
[2022-03-19] MEDS: FUROSEMIDE 40MG/4ML VIAL IVP SCH ×2 (09:01→16:35)
[2022-03-19 09:22] LABS: BG BASE EXCESS -19.6 mmol/L (-2.0-2.0); BG CARBOXYHEMOGLOBIN 0.3 % (0.5-1.5); BG DEOXYHEMOGLOBIN 14.9 % (0.0-5.0); BG FRACTION INSPIRED OXYGEN 100; BG HCO3 ACT 10.5 mmol/L (22.0-26.0); BG METHEMOGLOBIN 0.3 % (0.0-1.5); BG OXYHEMOGLOBIN 84.5 % (94.0-97.0); BG PCO2 42.1 mmHg (35.0-45.0); BG PH 7.013 (7.350-7.450); BG SAMPLE SITE RIGHT RADIAL; BG TOTAL HEMOGLOBIN 9.8 g/dL (12.0-18.0); BG VENT MODE VENT - AC
[2022-03-19] MEDS ORDERED: SODIUM BICARBONATE 8.4% 1 MEQ/ML 50ML SYR IV SCH (09:30)
[2022-03-19] MEDS ORDERED: PHYTONADIONE 10MG/ML AMP SUBCUT NR (09:30)
[2022-03-19] MEDS: CEFEPIME 2,000 MG in DEXT 5% WATER 100 ML IV SCH ×2 (09:53→22:08)
[2022-03-19] MEDS ORDERED: PHYTONADIONE 10 MG in DEXTROSE 5% WATER 50 ML IV NR (10:00)
[2022-03-19 11:37] LABS: NUCLEATED RED BLOOD CELLS 4 /100 WBC; PLATELET ESTIMATE NORMAL
[2022-03-19] MEDS: BLOOD SUGAR DIAGNOSTIC STRIP TEST SCH ×2 (12:19→17:57)
[2022-03-20] VITALS (86 sets, daily range): BP systolic 0–114; BP diastolic 0–71
[2022-03-20] MEDS: DEXTROSE 50% WATER 50ML SYRINGE IV PRN ×6 (00:13→19:45)
[2022-03-20] MEDS: BLOOD SUGAR DIAGNOSTIC STRIP TEST SCH ×4 (00:14→17:06)
[2022-03-20] MEDS: PHENYLEPHRINE 100 MG in DEXT 5% WATER 240 ML IV PRN ×3 (01:34→15:20)
[2022-03-20] MEDS: DOPAMINE 800MG PREMIX (DOUBLE) 250 ML IV PRN ×3 (01:34→19:14)
[2022-03-20] MEDS: SODIUM BICARBONATE 150 MEQ in DEXTROSE 5% WATER 1,000 ML IV SCH (03:13)
[2022-03-20] MEDS: NOREPINEPHRINE 32 MG in DEXT 5% WATER 218 ML IV PRN ×3 (03:13→16:09)
[2022-03-20 06:00] LABS: HEMATOCRIT 24.4 % (42.0-52.0); MEAN CORPUSCULAR HEMOGLOBIN 33.1 pg (28.0-32.0); MEAN CORPUSCULAR VOLUME 115.2 fL (80.0-94.0); RED BLOOD CELL COUNT 2.11 mill/uL (4.7-6.1); RED CELL DISTRIBUTION WIDTH 19.6 % (11.6-14.6)
[2022-03-20 06:02] LABS: PROTHROMBIN TIME 69.7 sec (9.6-11.0)
[2022-03-20 06:07] LABS: PLATELET 80 x1000/uL (130-400)
[2022-03-20] MEDS: METRONIDAZOLE 500 MG PREMIX 100 ML IV SCH ×2 (06:10→13:05)
[2022-03-20] MEDS: METHYLPREDNISOLONE SOD SUCC 125 MG/2 ML VIAL IV SCH ×2 (06:10→13:05)
[2022-03-20 06:40] LABS: INR 7.6
[2022-03-20] MEDS: VASOPRESSIN 20 UNIT in SODIUM CHLORIDE 0.9% 99 ML IV PRN ×2 (08:20→17:06)
[2022-03-20 08:46] LABS: BG BASE EXCESS -18.4 mmol/L (-2.0-2.0); BG CARBOXYHEMOGLOBIN 0.5 % (0.5-1.5); BG FRACTION INSPIRED OXYGEN 100; BG HCO3 ACT 9.9 mmol/L (22.0-26.0); BG METHEMOGLOBIN 1.3 % (0.0-1.5); BG OXYHEMOGLOBIN 96.2 % (94.0-97.0); BG PCO2 33.6 mmHg (35.0-45.0); BG PH 7.087 (7.350-7.450); BG PO2 129.6 mmHg (75.0-100.0); BG SAMPLE SITE RIGHT RADIAL; BG VENT MODE VENT - AC
[2022-03-20] MEDS: DOCUSATE SODIUM 100MG CAPSULE PO SCH (09:00)
[2022-03-20] MEDS: SPIRONOLACTONE 50MG TABLET PO SCH (09:00)
[2022-03-20] MEDS ORDERED: PHYTONADIONE 10MG/ML AMP SUBCUT NR (09:15)
[2022-03-20] MEDS ORDERED: SODIUM BICARBONATE 8.4% 1 MEQ/ML 50ML SYR IV SCH (09:15)
[2022-03-20] MEDS: CEFEPIME 2,000 MG in DEXT 5% WATER 100 ML IV SCH (10:16)
[2022-03-20] MEDS: PANTOPRAZOLE SODIUM 40 MG/VIAL IV SCH (10:17)
[2022-03-20] MEDS: FUROSEMIDE 40MG/4ML VIAL IVP SCH ×2 (10:17→17:06)
== END 2022-03-21 00:01 | DRG 720 ==
LOC: ER 03:32 → EDBEDREQ 05:28 → EDBEDREQTM 05:28 → 5EST 06:14 → EDBEDREQTM 06:24 → EDBEDREQ 06:24 → ENRESERV 09:11 → CVICU 03-18 10:38
PROVIDERS: ADMIT Internal Medicine; ATTEND Internal Medicine
PROC: 0W9G3ZZ Drainage of Peritoneal Cavity, Percutaneous Approach (ICD-10-PCS; 2022-03-16)
PROC: 5A09457 Assistance with Respiratory Ventilation, 24-96 Consecutive Hours, Continuous Positive Airway Pressure (ICD-10-PCS; 2022-03-16)
PROC: 30233N1 Transfusion of Nonautologous Red Blood Cells into Peripheral Vein, Percutaneous Approach (ICD-10-PCS; 2022-03-17)
PROC: 5A1945Z Respiratory Ventilation, 24-96 Consecutive Hours (ICD-10-PCS; principal; 2022-03-18)
PROC: 0BH17EZ Insertion of Endotracheal Airway into Trachea, Via Natural or Artificial Opening (ICD-10-PCS; 2022-03-18)
PROC: 02HV33Z Insertion of Infusion Device into Superior Vena Cava, Percutaneous Approach (ICD-10-PCS; 2022-03-18)
PROC: B548ZZA Ultrasonography of Superior Vena Cava, Guidance (ICD-10-PCS; 2022-03-18)
DX: A41.9 Sepsis, unspecified organism (principal); J96.01 Acute respiratory failure with hypoxia; D65 Disseminated intravascular coagulation [defibrination syndrome]; R57.9 Shock, unspecified; E43 Unspecified severe protein-calorie malnutrition; J18.9 Pneumonia, unspecified organism; E87.4 Mixed disorder of acid-base balance; E83.51 Hypocalcemia; N17.9 Acute kidney failure, unspecified; E88.09 Other disorders of plasma-protein metabolism, not elsewhere classified; Z66 Do not resuscitate; K70.31 Alcoholic cirrhosis of liver with ascites; I50.9 Heart failure, unspecified; E16.2 Hypoglycemia, unspecified; D53.9 Nutritional anemia, unspecified; Z20.822 Contact with and (suspected) exposure to COVID-19; K40.20 Bilateral inguinal hernia, without obstruction or gangrene, not specified as recurrent; K57.90 Diverticulosis of intestine, part unspecified, without perforation or abscess without bleeding; E87.6 Hypokalemia; Z59.00 Homelessness unspecified; Z68.32 Body mass index [BMI] 32.0-32.9, adult
CPT/HCPCS: 31500; 36415; 36600; 49083; 71045; 74176; 80048; 80053; 80061; 80305; 80320; 81003; 82140; 82375; 82607; 82728; 82746; 82805; 82962; 83036; 83540; 83550; 83605; 83735; 83880; 84100; 84145; 84439; 84443; 84484; 85025; 85027; 86705; 86709; 86803; 86850; 86900; 86920; 87070; 87077; 87186; 87340; 87426; 93005; 93306; 93970; 94002; 94003; 94640; 94660; 99291; C9113; C9803; J0692; J0696; J1265; J1885; J1940; J2250; J2270; J2370; J2405; J2543; J2930; J3010; J3370; J3430; J3475; J3490; J7050; J7060; J7070; P9016; P9047; A4315; G0480